=== PATIENT | female | born 1945 | race Caucasian/White ===

== ENCOUNTER 2017-01-03 17:51 | Inpatient (IN) | payer MEDICARE, OTHER ==
[~2017-01-03] VITALS: Ht 167.6 cm; Wt 69.2 kg
--- NOTE | 2017-01-03 18:02 | NUR ---
PT TO UNIT VIA EMS. PT IS ALERT AND ORIENTED. ON 02 AT 3L VIA NC. DAUGHTER IS AT BEDSIDE. WILL ADMIT PT AND CONTINUE TO MONITOR.
[2017-01-03] MEDS ORDERED: ADVAIR 100/501 DISK INH (18:05)
[2017-01-03] MEDS ORDERED: VALIUM5 MG (18:06)
[2017-01-03] MEDS ORDERED: PROZAC20 MG PO (18:06)
[2017-01-03] MEDS ORDERED: METOPROLOL TART25 MG PO (18:07)
[2017-01-03] MEDS ORDERED: DIFLUCAN100 MG PO (18:07)
[2017-01-03] MEDS ORDERED: MS CONTIN30 MG PO (18:08)
[2017-01-03] MEDS ORDERED: MUCINEX600 MG PO (18:08)
[2017-01-03] MEDS ORDERED: SEROQUEL100 MG PO (18:08)
[2017-01-03] MEDS ORDERED: ZITHROMAX500 MG PO (18:09)
[2017-01-03] MEDS ORDERED: PROAIR HFA8.5 GM INH (18:09)
[2017-01-03] MEDS ORDERED: ONDANSETRON4 MG/2 M3 IV (18:10)
[2017-01-03] MEDS ORDERED: CEFTRIAXONE1 G/VIAL IM (18:11)
[2017-01-03] MEDS ORDERED: COLACE100 MG PO (18:11)
[2017-01-03] MEDS ORDERED: SOLU-MEDRO40 MG/1 M1 (18:11)
[2017-01-03] MEDS ORDERED: FLUTICASONE PRO16 GM NASAL (18:11)
[2017-01-03] MEDS ORDERED: LOVENOX40 MG/0.4 SC (18:11)
[2017-01-03] MEDS ORDERED: NICODERM C1 PATCH .3 TRANSDERM (18:12)
[2017-01-03] MEDS ORDERED: LASIX INJ40 MG/4 ML IV (18:12)
[2017-01-03 18:13] VITALS: BP 147/81; BMI 25.8
--- NOTE | 2017-01-03 18:31 | NUR ---
QUICKSTART DONE, ADMISSION ASSESSMENT DONE, AND ADMISSION HISTORY DONE. PT DOES HAVE LEMUS CATHETER THAT WAS PLACED BY PRIOR HOSPTIAL BEFORE TRANSPORT. RECEIVING NEW ORDERS NOW. WILL PASS THIS ALONG TO LAN ADMINISTRATOR NURSE.
[2017-01-03 19:00] VITALS: BP 178/84
[2017-01-03 19:09] LABS: BASOPHILS 0.1 % (0-2); EOSINOPHILS 0 % (0-7); HEMATOCRIT 40.3 % (36.0-48.0); HEMOGLOBIN 12.7 g/dL (12-16); IMMATURE GRANULOCYTES 0.6 % (0-5); LYMPHOCYTES 7.4 % (15-50); MCH 28.3 pg (26.0-34.0); MCHC 31.5 g/dL (31.0-37.0); MEAN PLATELET VOLUME 9.9 fL (7.4-10.4); MONOCYTES 3.2 % (2-11); NEUTROPHILS 88.7 % (40-80); PLATELET COUNT 311 10x3/uL (130-400); RBC 4.48 10x6/uL (4.00-5.40); RDW 14.2 % (11.5-14.5); WBC 12.1 10x3/uL (4.8-10.8)
[2017-01-03 19:47] LABS: ALBUMIN 2.9 g/dL (3.4-5.0); ANION GAP 13.7 mmol/L (8-16); BILIRUBIN - TOTAL 0.21 mg/dL (0.2-1.3); CALCIUM 8.3 mg/dL (8.5-10.1); CARBON DIOXIDE 29.5 mmol/L (21.0-32.0); POTASSIUM - SERUM 3.2 mmol/L (3.5-5.1); PROTEIN - SERUM 6.3 g/dL (6.4-8.2)
--- NOTE | 2017-01-03 20:11 | NUR ---
PATIENT REQUESTED PAIN AND ANXIETY MEDICATIONS THAT SHE TAKES AT HOME. I SPOKE WITH DONG FELIX APRN AND SHE GAVE ME THE ORDER TO DO MORPHINE Q 4 HOURS PRN AND TO RESUME HER VALIUM HOME MED.
[2017-01-04 01:21] VITALS: BP 108/51
[2017-01-04 04:00] VITALS: BP 120/55
[2017-01-04 05:12] LABS: BASOPHILS 0 % (0-2); EOSINOPHILS 0 % (0-7); HEMATOCRIT 37.7 % (36.0-48.0); IMMATURE GRANULOCYTES 0.5 % (0-5); LYMPHOCYTES 9.9 % (15-50); MCH 28.4 pg (26.0-34.0); MCHC 31.8 g/dL (31.0-37.0); MCV 89.3 fL (80.0-100.0); MEAN PLATELET VOLUME 10.1 fL (7.4-10.4); MONOCYTES 3.6 % (2-11); PLATELET COUNT 298 10x3/uL (130-400); RBC 4.22 10x6/uL (4.00-5.40); RDW 14.1 % (11.5-14.5)
[2017-01-04 05:30] LABS: ALBUMIN 2.4 g/dL (3.4-5.0); ALKALINE PHOSPHATASE 79 U/L (46-116); ALT (SGPT) 45 U/L (10-68); BILIRUBIN - TOTAL 0.29 mg/dL (0.2-1.3); CALCIUM 7.9 mg/dL (8.5-10.1); CARBON DIOXIDE 34.3 mmol/L (21.0-32.0); CHLORIDE - SERUM 103 mmol/L (98-107); POTASSIUM - SERUM 3.3 mmol/L (3.5-5.1); PROTEIN - SERUM 5.6 g/dL (6.4-8.2); SODIUM 143 mmol/L (136-145); UREA NITROGEN 27 mg/dL (7-18)
[2017-01-04 05:31] LABS: CALC OSMOLALITY 292 mosm/kg (275-300); GLUCOSE 145 mg/dL (74-106)
[2017-01-04 05:32] LABS: CREATININE - SERUM 0.7 mg/dL (0.6-1.3); eGFR NON AFRICAN AMERICAN 87 mL/min (90-120)
--- NOTE | 2017-01-04 07:58 | NUR ---
AM ROUNDS - PT IS IN BED AND AWAKE AT THIS TIME. PT ON 2L O2 VIA NC. IV TO LEFT FA, NS AT 5CC/HR. BED AT LOWEST POSITION. CALL HANLEY IN USE/REACH. SIDE RAILS UP X2. NO NEEDS AT THIS TIME. WILL CONTINUE TO MONITOR
[2017-01-04 08:42] VITALS: BP 162/74
[2017-01-04 12:09] VITALS: BP 157/70
[2017-01-04 14:13] VITALS: Ht 167.6 cm; Wt 69.2 kg
[2017-01-04 16:29] VITALS: BP 157/73
[2017-01-04 20:00] VITALS: BP 138/68
--- NOTE | 2017-01-04 20:33 | NUR ---
HS MEDS GIVEN WITH FRESH ICE WATER, PT ASKING FOR VALIUM, INFORMED PT THAT I WILL BRING IN TO HER SHORTLY, BUT DONT LIKE GIVEN TOO MANY SEDATIVE MEDICATIONS TOGETHER, SINCE SHE WAS GETTING MORPHINE AND SEROQUEL THAT ID LIKE TO STAGGER HER OTHER MEDS. PT STATED THAT SHE IS OK WITH THAT.
--- NOTE | 2017-01-04 21:03 | NUR ---
VALIUM 5 MG TAB GIVEN AT PT REQUEST.
--- NOTE | 2017-01-05 00:27 | NUR ---
RESTING WITH EYES CLOSED, RESPERATIONS EVEN, NO S/S DISTRESS NOTED.
[2017-01-05 01:11] VITALS: BP 118/56
[2017-01-05 04:29] VITALS: BP 126/65
--- NOTE | 2017-01-05 04:36 | NUR ---
AGED OR DISABLED CARER AT BED SIDE TO OBTAIN VITALS.
[2017-01-05 05:21] LABS: BASOPHILS 0 % (0-2); EOSINOPHILS 0 % (0-7); IMMATURE GRANULOCYTES 0.5 % (0-5); LYMPHOCYTES 12.4 % (15-50); MCH 28.3 pg (26.0-34.0); MCHC 31.7 g/dL (31.0-37.0); MCV 89.3 fL (80.0-100.0); MEAN PLATELET VOLUME 9.8 fL (7.4-10.4); MONOCYTES 3.5 % (2-11); NEUTROPHILS 83.6 % (40-80); PLATELET COUNT 303 10x3/uL (130-400); RBC 4.59 10x6/uL (4.00-5.40); RDW 13.9 % (11.5-14.5)
[2017-01-05 06:01] LABS: CALC OSMOLALITY 289 mosm/kg (275-300); CALCIUM 8.2 mg/dL (8.5-10.1); CARBON DIOXIDE 37.2 mmol/L (21.0-32.0); CHLORIDE - SERUM 101 mmol/L (98-107); CREATININE - SERUM 0.7 mg/dL (0.6-1.3); GLUCOSE 146 mg/dL (74-106); POTASSIUM - SERUM 3.7 mmol/L (3.5-5.1); SODIUM 141 mmol/L (136-145); UREA NITROGEN 29 mg/dL (7-18); eGFR NON AFRICAN AMERICAN 87 mL/min (90-120)
[2017-01-05 08:23] VITALS: BP 134/61
--- NOTE | 2017-01-05 08:29 | NUR ---
AM ROUNDS - PT IN BED AND AWAKE AT THIS TIME. O2 AT 3L VIA NC. IV TO LEFT FA, NS AT 5CC/HR. PT WOULD LIKE A GAS RELIEVER. WILL CONSULT WITH DOCTOR. NO NEEDS AT THIS TIME. BED AT LOWEST POSITINO. CALL HANLEY IN USE/REACH. SIDE RAILS UP X2. WILL CONTINUE TO MONITOR.
--- NOTE | 2017-01-05 11:38 | CN ---
PATIENT NAME:ASHLEY SUE MEDICAL RECORD: [id number] : 43 LOCATION:[facility] D.2137 ADMIT DATE: 01/03/17 ACCOUNT: [id number] CONSULTING PHYSICIAN: DAYDAY RODRIGUEZ MD REFERRING PHYSICIAN: MARYLU BAKER MD DATE OF CONSULTATION: 01/04/2017 CONSULT REQUESTING PHYSICIAN: Dr. Marylu Baker REASON FOR CONSULTATION: Acute exacerbation of chronic obstructive pulmonary disease, right-sided pleural effusion, infiltrate - right lower lobe. HISTORY OF PRESENT ILLNESS: Ms. Sue is a 71-year-old female with a history of COPD on home oxygen at nighttime currently, but she was sick on , was admitted to the local hospital in [place]. She also gained nearly 8 pounds. They were diuresing her. Got some antibiotic. She still continued to have shortness of breath, wheezing, and coughing. The patient also is having a lot of anxiety. She has a cough with yellow color sputum production. She is also having some night sweats. Sinus congestion. REVIEW OF SYSTEMS: Mainly in the history of present illness. PAST MEDICAL HISTORY: 1. COPD. 2. Asthma. 3. Nocturnal hypoxia. 4. Hypertension. 5. Gastroesophageal reflux disease. 6. History of constipation. 7. Anxiety and depression. PAST SURGICAL HISTORY: 1. She has a thoracotomy times 2 in the s for lung nodule and the biopsies at that time were negative. 2. Cholecystectomy. 3. Back surgery. 4. Mastectomy. 5. Hysterectomy. 6. Wrist surgery. ALLERGIES: SHE IS ALLERGIC TO LIPITOR, CRESTOR, and FLUOXETINE. MEDICATIONS: She is on Rocephin IV, Zithromax IV. Her all other medications reviewed. PERSONAL AND SOCIAL HISTORY: The patient still continues to smoke half pack per day. She is a nondrinker. FAMILY HISTORY: Significant for neurological disorder. PHYSICAL EXAMINATION: GENERAL: Now, the patient is lying comfortably in bed. She is not in acute distress. VITAL SIGNS: Blood pressure is 157/70, pulse is 70, respiration is 18, temperature 97.5, SPO2 is 94% on 3 liters nasal cannula. CONSULT REPORT [id number] ASHLEY USE HEAD, EYES, EARS, NOSE, AND THROAT: Conjunctivae are pink. Sclerae nonicteric. NECK: Supple, no JVD. CHEST: There is prolonged expiration with wheezing. There are crackles at the right base. HEART: Rhythm regular, normal sound, no murmur. ABDOMEN: Soft. Bowel sounds present. No hepatosplenomegaly. RECTAL: Deferred. EXTREMITIES: No cyanosis, no clubbing, no pedal edema. SKIN: Warm, normal turgor. CENTRAL NERVOUS SYSTEM: The patient is awake and alert. There is no obvious cranial nerve abnormality. The gait was not tested. LABORATORY DATA: CBC: WBC 12.1, hemoglobin 12.7, hematocrit 40.3, the platelet count is 311. Chemistry: Sodium is 142, potassium 3.2, chloride 102, BUN is 25, creatinine is 1, glucose 218. IMAGING: Chest radiograph, there is right-sided pleural effusion. There is soft tissue density in the left hemidiaphragm, possible eventration. IMPRESSION: 1. Pgjco-cz-cixopyg hypoxic respiratory failure. 2. Acute exacerbation of chronic obstructive pulmonary disease. 3. 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 4. Right pleural effusion, possible parapneumonic. 5. Pneumonia, right lower lobe, possible community-acquired pneumonia. 6. Tobacco dependence syndrome. 7. Leukocytosis. 8. Hypokalemia. 9. Congestive heart failure with possible diastolic dysfunction. RECOMMENDATIONS: 1. Continue Rocephin. Discontinue Zithromax. Start her on Levaquin IV. 2. Methylprednisolone IV, albuterol/ipratropium nebulizer, Brovana and budesonide nebulizer. Check the proBNP. Check alpha-1 level. Check the cardiac echo. 3. Cardiology consult. 4. The patient was counseled regarding smoking cessation. 5. Followup of labs and chest radiographs. Dr. Baker thank you for involving me in the care of Ms. Sue. TRANSINT:[id number] Voice Confirmation ID: [id number] DOCUMENT ID: [id number] DAYDAY RODRIGUEZ MD at 1138 CC: MARYLU BAKER MD [id number] DICTATION DATE: 01/04/17 1559 TUNNEL DRIER OPERATOR: 01/04/17 1739 [place] [address]
[2017-01-05 11:56] VITALS: BP 138/89
[2017-01-05 16:13] VITALS: BP 144/77
[2017-01-05 21:32] VITALS: BP 129/64
[2017-01-06 02:21] VITALS: BP 130/70
--- NOTE | 2017-01-06 03:14 | NUR ---
FAST FOOD SERVER AT BEDSIDE TO OBTAIN VITALS, CALL LIGHT IN REACH. WILL CONTINUE WITH PLAN OF CARE.
[2017-01-06 05:01] LABS: BASOPHILS 0 % (0-2); EOSINOPHILS 0 % (0-7); HEMATOCRIT 40.1 % (36.0-48.0); HEMOGLOBIN 12.8 g/dL (12-16); IMMATURE GRANULOCYTES 0.5 % (0-5); LYMPHOCYTES 9.4 % (15-50); MCH 28.5 pg (26.0-34.0); MCHC 31.9 g/dL (31.0-37.0); MCV 89.3 fL (80.0-100.0); MONOCYTES 4.3 % (2-11); NEUTROPHILS 85.8 % (40-80); PLATELET COUNT 305 10x3/uL (130-400); RBC 4.49 10x6/uL (4.00-5.40); RDW 13.6 % (11.5-14.5); WBC 10.2 10x3/uL (4.8-10.8)
[2017-01-06 05:12] LABS: CALC OSMOLALITY 285 mosm/kg (275-300); CALCIUM 8.2 mg/dL (8.5-10.1); CARBON DIOXIDE 38.7 mmol/L (21.0-32.0); CHLORIDE - SERUM 100 mmol/L (98-107); CREATININE - SERUM 0.7 mg/dL (0.6-1.3); GLUCOSE 160 mg/dL (74-106); POTASSIUM - SERUM 3.6 mmol/L (3.5-5.1); SODIUM 139 mmol/L (136-145); UREA NITROGEN 27 mg/dL (7-18); eGFR NON AFRICAN AMERICAN 87 mL/min (90-120)
[2017-01-06 06:19] VITALS: BP 128/70
--- NOTE | 2017-01-06 07:10 | NUR ---
REPORT RECEIVED. RR EVEN AND UNLABORED, PT REQESTING PRN PAIN MEDS. WILL GIVE PRN MORPHINE. WILL CTM.
[2017-01-06 07:52] VITALS: BP 140/73
--- NOTE | 2017-01-06 08:00 | NUR ---
PT C/O BLADDER SPASMS. CLAMPED LEMUS, WILL UNCLAMP IN 30-45 MINUTES AND EVALUATE RESULTS.
--- NOTE | 2017-01-06 08:50 | NUR ---
UNCLAMMPED PTS LEMUS. REPORTS RELIEF IN BLADDER SPASMS. WILL CTM.
--- NOTE | 2017-01-06 10:30 | NUR ---
PT REPORTS NOT HAVING BM IN "SIX DAYS." REQUESTED SOMETHING TO ASSIST HER TO HAVE A BM. WILL SPEAK TO WADER BOOT TOP ASSEMBLER ABOUT PT REQUEST.
--- NOTE | 2017-01-06 12:09 | NUR ---
AFTER REVIEWING THE CHART, ENEMA IS ALREADY ORDERED PRN. ENEMA NOT AVIALABLE, SPOKE TO [facility], REPORTED THEY WOULD BRING ONE UP. WILL GIVE ONCE AVAILABLE.
[2017-01-06 12:30] VITALS: BP 122/55
--- NOTE | 2017-01-06 13:49 | NUR ---
Nutrition Follow Up: Per chart pt with constipation and gas. Noted pt to receive an enema. Pt is eating 28% meal avg on a regular diet. No BM since admit. Labs reviewed. Meds noted including Colace, Lasix. Rec continue current diet. Rec continue bowel regimen. RD following.
--- NOTE | 2017-01-06 13:51 | NUR ---
AFTER ENEMA GIVEN 3 MIN AGO. ASSISTED PT UP TO BSC. EXPLAINED TO PT THAT SHE NEEDS TO HOLD THE ENEMAS LONGER OR THEY WILL NOT BE EFFECTIVE. REPORTED "I CAN'T HOLD IT." WILL ASSIST PT BACK TO BED WHEN READY TO GET OFF BSC AND EVALUATE RESULTS.
--- NOTE | 2017-01-06 14:00 | NUR ---
PT HAD LARGE BM. REPORTS FEELING RELIEF.
[2017-01-06 16:01] VITALS: BP 117/63
--- NOTE | 2017-01-06 18:30 | NUR ---
PT RESTING QUIETLY, RR EVEN AND UNLABORED. GAVE PRN PAIN MED AND ANXIETY MED. WILL GIVE REPORT ON PT CONDITION FOR THE DAY.
[2017-01-06 20:27] VITALS: BP 125/61
[2017-01-07 00:33] VITALS: BP 117/57
--- NOTE | 2017-01-07 03:19 | NUR ---
RAIL CAR PAINTER/SANDBLASTER AT BEDSIDE TO OBTAIN VITALS, CALL LIGHT IN REACH. WILL CONTINUE WITH PLAN OF CARE.
[2017-01-07 04:33] VITALS: BP 123/53
--- NOTE | 2017-01-07 07:15 | NUR ---
REPORT RECEIVED. PT DENIES NEEDS AT THIS TIME. RR EVEN AND UNLABORED. PT REQUESTED THAT I BRING HER ANXIETY MED WITH HER MORNING MEDS. WILL CTM.
[2017-01-07 08:33] VITALS: BP 129/76
--- NOTE | 2017-01-07 09:14 | NUR ---
MORNING MEDS GIVEN. LEMUS D/C PER ORDERS. 10MLS REMOVED FROM LEMUS PRIOR TO REMOVAL. PT TOLERATED WELL. INSTRUCTED PT TO LET ME KNOW IF SHE NEEDS ASSISTANCE GETTING OOB TO BSC. WILL CTM.
[2017-01-07 12:50] VITALS: BP 121/59
[2017-01-07 16:22] VITALS: BP 112/63
--- NOTE | 2017-01-07 18:30 | NUR ---
PT RESTING QUIETLY, EVENING MEDS GIVEN. PT REQUESTED PRN ANXIETY MED. GIVEN. RR EVEN AND UNLABORED. PT REPORTS VOIDING W/O DIFFICULTY TODAY. WILL GIVE SHIFT REPORT ON PT CONDITION FOR THE DAY.
[2017-01-07 20:59] VITALS: BP 113/55
[2017-01-08 01:13] VITALS: BP 95/38
--- NOTE | 2017-01-08 03:00 | NUR ---
PATIENT RESTING WELL IN BED, RESPIRATIONS EVEN AND UNLABORED. CALL LIGHT IN REACH, WILL CONTINUE PLAN OF CARE.
[2017-01-08 04:19] LABS: BASOPHILS 0.1 % (0-2); EOSINOPHILS 0 % (0-7); HEMATOCRIT 40.6 % (36.0-48.0); HEMOGLOBIN 12.8 g/dL (12-16); IMMATURE GRANULOCYTES 1.5 % (0-5); LYMPHOCYTES 8.9 % (15-50); MCH 28.3 pg (26.0-34.0); MCHC 31.5 g/dL (31.0-37.0); MCV 89.8 fL (80.0-100.0); MEAN PLATELET VOLUME 9.7 fL (7.4-10.4); MONOCYTES 3.7 % (2-11); NEUTROPHILS 85.8 % (40-80); PLATELET COUNT 282 10x3/uL (130-400); RBC 4.52 10x6/uL (4.00-5.40); RDW 13.9 % (11.5-14.5); WBC 8.1 10x3/uL (4.8-10.8)
[2017-01-08 04:35] LABS: ANION GAP 4.7 mmol/L (8-16); CALCIUM 7.8 mg/dL (8.5-10.1); CARBON DIOXIDE 39.4 mmol/L (21.0-32.0); POTASSIUM - SERUM 4.1 mmol/L (3.5-5.1)
[2017-01-08 04:41] LABS: CREATININE - SERUM 0.9 mg/dL (0.6-1.3)
[2017-01-08 04:51] VITALS: BP 113/52
--- NOTE | 2017-01-08 07:10 | NUR ---
RECEIVED REPORT. ASSUMED CARE OF PATIENT. PATIENT RESTING IN BED WITH EYES OPEN. CALL LIGHT WITHIN REACH. REPORTS PAIN IS MUCH BETTER AFTER RECEIVING PAIN MEDICATION. DENIES NEEDS AT THIS TIME. NO DISTRESS.
[2017-01-08 08:48] VITALS: BP 127/45
--- NOTE | 2017-01-08 09:34 | NUR ---
MEDICATED FOR ANXIETY AT THIS TIME. NO DISTRESS.
[2017-01-08 11:51] VITALS: BP 138/62
--- NOTE | 2017-01-08 15:09 | NUR ---
MEDICATED FOR PAIN AND ANXIETY AT THIS TIME. NO DISTRESS.
[2017-01-08 15:47] VITALS: BP 118/64
--- NOTE | 2017-01-08 19:45 | NUR ---
MADONNA NOTE: PT USING BED WITH GRILL COOK AT THE CHANGE OF SHIFT. PT IS WEARING OXYGEN 3LNC. IV ACCESS, LEFT FOREARM SALINE LOC. PT STATE THAT SHE MAY BE GOING HOME THIS WEEKEND BUT PROB NOT TILL TUESDAY. SHE IS FEELING MUCH BETTER THAN SHE HAS BEEN. SHE IS REQUESTING TO GET HER NIGHT TIME MEDS BY 2029 IF POSSIBLE. WILL TRY TO ACCOMODATE
[2017-01-08 21:24] VITALS: BP 118/42
[2017-01-09 04:00] VITALS: BP 97/48
--- NOTE | 2017-01-09 06:03 | NUR ---
PT WAS MEDICATED AT 2030 PER EARLIER REQUEST. SHE HAS BEEN SLEEPING THROUGHOUT THE REST OF THE SHIFT.
--- NOTE | 2017-01-09 07:10 | NUR ---
RECEIVED REPORT. ASSUMED CARE OF PATIENT. CALL LIGHT WITHIN REACH. SITTING IN BED WITH EYES OPEN. ASSISTED PATIENT OOB TO BEDSIDE COMMODE AND BACK TO BED. NO DISTRESS.
[2017-01-09 09:34] VITALS: BP 101/51
--- NOTE | 2017-01-09 11:56 | NUR ---
OOB SITTING TO CHAIR AT BEDSIDE. FAMILY PRESENT. NO DISTRESS.
[2017-01-09 12:16] VITALS: BP 99/58
--- NOTE | 2017-01-09 13:21 | NUR ---
PRN COLACE SUPPOSITORY ADMINISTERED AT THIS TIME FOR NO BM X 2 DAYS. NO DISTRESS.
--- NOTE | 2017-01-09 13:40 | NUR ---
COLACE SUPPOSITORY EFFECTIVE. PATIENT HAS MODERATE BM.
--- NOTE | 2017-01-09 14:02 | NUR ---
MEDICATED FOR PAIN. RESTING IN BED. NO DISTRESS.
[2017-01-09] MEDS ORDERED: LEVAQUIN750 MG PO (14:34)
[2017-01-09] MEDS ORDERED: IPRAT-ALBUT 0.5-3 ML UPD (14:34)
[2017-01-09] MEDS ORDERED: BROVANA15 MCG/2 M INH (14:34)
[2017-01-09] MEDS ORDERED: PULMICORT0.5 MG/21 UPD (14:37)
[2017-01-09] MEDS ORDERED: SINGULAIR10 MG PO (14:37)
[2017-01-09] MEDS ORDERED: FLORAJEN3 CAPS460 MG PO (14:37)
[2017-01-09] MEDS ORDERED: PREDNISONE20 MG PO (14:40)
[2017-01-09] MEDS ORDERED: FUROSEMIDE20 MG PO (14:40)
[2017-01-09] MEDS ORDERED: K-TAB10 MEQ PO (14:40)
[2017-01-09 16:12] VITALS: BP 113/59
--- NOTE | 2017-01-09 16:42 | NUR ---
1625 22 GAUGE IV REMOVED FROM LEFT FOREARM. CATHETER TIP INTACT. NO BLEEDING FROM SITE. 2X2 GAUZE APPLIED AND SECURED WITH TAPE. PATIENT IS BEING DISCHARGED TO HOME. TOLERATED IV REMOVAL WELL. 1635 DISCHARGE INSTRUCTIONS PROVIDED TO PATIENT AND HER DAUGHTER WHOM IS DRIVING PATIENT BACK HOME TO [place]. PATIENT VERBALIZED UNDERSTANDING OF ALL INSTRUCTIONS PROVIDED. MEDICATIONS DISCUSSED. NO QUESTIONS FOR THIS PHP MYSQL DEVELOPER.
--- NOTE | 2017-01-09 16:54 | NUR ---
PATIENT LEFT UNIT VIA WHEELCHAIR. PATIENT LEFT UNIT WITH PERSONAL OXYGEN TANK. PATIENT IN NO DISTRESS UPON LEAVING UNIT. DISCHARGED TO HOME WITH DAUGHTER.
--- NOTE | 2017-01-10 13:58 | CN ---
PATIENT NAME:ASHLEY KING MEDICAL RECORD: [id number] : 41 LOCATION:[facility] D.2137 ADMIT DATE: 01/03/17 ACCOUNT: [id number] CONSULTING PHYSICIAN: CHRISTEN ALFARO MD REFERRING PHYSICIAN: MARYLU BAKER MD DATE OF CONSULTATION: 01/05/2017 HISTORY OF PRESENT ILLNESS: A 71-year-old female with a history of hypertension, dyslipidemia, longstanding obstructive pulmonary disease with q.h.s. O2 became fairly acutely dyspneic over the week of prompting admission to an outside hospital. She was transferred here after failing to clear very quickly. She has a history of hypertension and dyslipidemia, was somewhat volume overloaded at that time. We are asked to see her concerning cardiovascular status. PAST MEDICAL HISTORY: 1. Includes history of obstructive pulmonary disease. 2. Hypertension. 3. Dyslipidemia. 4. Gastroesophageal reflux disease. 5. Anxiety and depression. 6. Chronic pain syndrome. ALLERGIES: LIPITOR, CRESTOR, ZOCOR. MEDICATIONS: Typically include Nicoderm 21 mg q.24 hour patch, albuterol ProAir 1 puff q.4 hours p.r.n., metoprolol 25 b.i.d., diazepam 5 mg q.4 hours p.r.n. anxiety, Prozac 20 every day, morphine, MS Contin 30 mg q.12 hours, Seroquel 100 mg p.o. q.h.s., Zofran 4 mg as needed. SOCIAL HISTORY: She smokes about a pack a day and continues. Able to take care of all the ADLs. REVIEW OF SYSTEMS: The patient reports easy bruising but reports no swollen glands. The patient reports no fever, no night sweats, no significant weight gain, no significant weight loss. No significant exercise tolerance. The patient reports no dry eyes, no irritation, no vision change. Patient reports no difficulty hearing and no ear pain. Patient reports no frequent nose bleeds or nose and sinus problems. Patient reports on arm pain on exertion. No shortness of breath while lying down. No history of heart murmur. Patient reports no cough, no wheezing or coughing up blood. Patient reports no abdominal pain, no vomiting. Normal appetite. No diarrhea and not vomiting blood. No nausea and no constipation. Patient reports no incontinence. No difficulty urinating. No hematuria. No increased frequency. Patient reports no muscle aches. No weakness, no arthralgias, no back pain. No swelling of the extremities. Patient reports no abnormal mole, no jaundice, no rashes. Reports no loss of consciousness. No weakness and no numbness. No seizures, dizziness, or headaches. The patient reports no depression, no sleep disturbance, feeling safe in a relationship and no alcohol abuse. Patient reports on fatigue. Reports no runny nose or sinus pressure. No itching, no hives, and no frequent sneezing. PHYSICAL EXAMINATION: VITAL SIGNS: Blood pressure 138/89, pulse 102 and regular. HEENT: Normocephalic. CONSULT REPORT [id number] ASHLEY KING NECK: No JVD or bruit. HEART: Regular, occasional extrasystole, II/ systolic ejection murmur. LUNGS: Inspiratory and expiratory wheezes, prolonged expiratory phase. ABDOMEN: Soft, nontender. EXTREMITIES: Pulses 2+. No edema. NEUROLOGIC: Grossly intact. IMPRESSION: Volume overload. LV systolic function remains normal. There is some diastolic dysfunction. I suspect some volume retention also secondary to hypoxia. Continue diuresis. I appreciate the opportunity to participate in the care of this patient. TRANSINT:[id number] Voice Confirmation ID: [id number] DOCUMENT ID: [id number] CHRISTEN ALFARO MD at 1358 CC: [id number] DICTATION DATE: 01/05/17 1409 ELECTRICIAN CRANE MAINTENANCE: 01/05/17 1442 DIS IN 01/09/17 [id number] [place] [address]
--- NOTE | 2017-01-18 12:14 | EC ---
PATIENT:ASHLEY KING DATE OF SERVICE: 01/03/17 SEX: F MEDICAL RECORD: [id number] DATE OF : 41 LOCATION:D. D.213 AGE OF PATIENT: 71 ADMISSION DATE: 01/03/17 REFERRING PHYSICIAN: INTERPRETING PHYSICIAN: APOLLO SNIDER MD ECHOCARDIOGRAM REPORT ECHO CHARGES 4 ECHO COMPLETE CLINICAL DIAGNOSIS: DYSPNEA ECHOCARDIOGRAPHIC MEASUREMENTS (adult normal given) AC root (d.<3.7cm) 2.4 cm LV Septum d (<1.2 cm> 1.2 cm Valve Excursion 0.8 cm LV Septum (systole) 1.7 cm Left Atria (s.<4.0cm> 2.2 cm LVPW d(<1.2cm) 1.2 cm RV (d.<2.3cm) 1.7 cm LVPW (sytole) 1.8 cm LV diastole(<5.6CM) 4.1 cm MV E-F(>70mm/sec) cm LV systole 2.3 cm LVOT Diameter 1.5 cm MV exc.(>10mm) cm Est.ejection fraction (50-75%) % Pericardial Effusion N DOPPLER: LVIT cm/sec A 106 cm/sec E 69.0 cm/sec LA cm/sec RVSP 17.0 mmHg LVOT 126 cm/sec AOP1/2T m/s Asc. Ao 144 cm/sec RVOT cm/sec RA cm/sec PA cm/sec AV Gradient Peak 8.3 mmHg AV Mean 3.9 mmHg AV Area 1.4 cm MV Gradient Peak 3.7 mmHg MV Mean 1.4 mmHg MV Area cm COMMENTS: Clinical Administrative Coordinator: Bart HERNNADEZOE Marine Electronics Repairer: 1 Dr. Snider TAPE# PACS DATE OF SERVICE: 01/05/2017 PROCEDURE: Echocardiogram. FINDINGS: 1. Left ventricular chamber size is within normal limits. Left ventricular systolic function is normal. Overall ejection fraction estimated at 60%. 2. Left atrium, right atrium, and right ventricular chamber sizes are within normal limits. 3. Valvular structures have normal structure and motion. ECHOCARDIOGRAM REPORT [id number] ASHLEY KING 4. Doppler interrogation reveals only trace tricuspid regurgitation. No other valvular insufficiency or stenosis. 5. No evidence of pericardial effusion or left ventricular thrombus. TRANSINT:[id number] Voice Confirmation ID: [id number] DOCUMENT ID: [id number] APOLLO SNIDER MD at 1214 CC: [id number] DICTATION DATE: 01/06/17 1242 ECOMMERCE MARKETING MANAGER: 01/06/17 1502 DIS IN 01/09/17 [id number] [place] [address]
== END 2017-01-09 16:56 | disposition home or self-care (01) | DRG 193 ==
LOC: D.M2 17:51
PROVIDERS: ADMIT Family Medicine
DX: J18.9 Pneumonia, unspecified organism (principal); J96.21 Acute and chronic respiratory failure with hypoxia; J44.1 Chronic obstructive pulmonary disease with (acute) exacerbation; J44.0 Chronic obstructive pulmonary disease with (acute) lower respiratory infection; I50.30 Unspecified diastolic (congestive) heart failure; M35.1 Other overlap syndromes; F17.203 Nicotine dependence unspecified, with withdrawal; I11.0 Hypertensive heart disease with heart failure; D64.9 Anemia, unspecified; E87.6 Hypokalemia; K59.00 Constipation, unspecified